=== PATIENT | female | born 1990 | race Caucasian/White ===

== ENCOUNTER 2017-02-08 16:18 | Emergency (ER) | payer OTHER ==
[~2017-02-08] VITALS: Ht 167.6 cm; Wt 65.0 kg
[2017-02-08 16:23] VITALS: Ht 167.6 cm; Wt 65.0 kg
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
[2017-02-08] MEDS ORDERED: CYCLOBENZAPRINE 10 MG TAB PO ONE (17:00)
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
[2017-02-08 17:49] LABS: CALCIUM 9.3 mg/dl (8.4-10.2); CREATININE 0.57 mg/dl (0.44-1.00); POTASSIUM 5.2 mmol/L (3.5-5.1)
[2017-02-08] MEDS ORDERED: CYCL-319 PO (18:22)
[2017-02-08] MEDS ORDERED: IBUP-1542 PO (18:22)
[2017-02-08 19:37] VITALS: BP 122/71; PULSE 79; RESP 18; TEMP 98.2
== END 2017-02-08 19:37 | disposition home or self-care (01) ==
LOC: E/R 16:18
DX: S16.1XXA Strain of muscle, fascia and tendon at neck level, initial encounter (principal); S29.019A Strain of muscle and tendon of unspecified wall of thorax, initial encounter; F17.210 Nicotine dependence, cigarettes, uncomplicated; R07.9 Chest pain, unspecified; X50.9XXA Other and unspecified overexertion or strenuous movements or postures, initial encounter; Y92.9 Unspecified place or not applicable
CPT/HCPCS: 71010; 72050; 80048; 82550; 84703; Z7502; Z7610